=== PATIENT | female | born 1980 | race Caucasian/White ===

== ENCOUNTER 2017-08-30 10:29 | Inpatient (IN) ==
[2017-08-30] MEDS ORDERED: OXYTOCIN 10 UNIT/ML INJECTION IM ONE (10:40)
[2017-08-30] MEDS ORDERED: CALCIUM CARBONATE Chewable 500mg TABLET PO PRN (11:00)
[2017-08-30] MEDS ORDERED: ACETAMINOPHEN 500 MG TABLET PO PRN (11:00)
[2017-08-30] MEDS ORDERED: MEASLES-MUMPS-RUBELLA VACCINE 0.5ml INJECTION SQ ONE (11:00)
[2017-08-30] MEDS ORDERED: MAG-AL + SIM ORAL LIQUID 30ml PO PRN (11:00)
[2017-08-30] MEDS ORDERED: DiphenhydrAMINE 25 MG CAPSULE PO PRN (11:00)
[2017-08-30] MEDS ORDERED: HYDROCORTISONE 2.5% CREAM 30gm RECTALLY PRN (11:00)
[2017-08-30] MEDS ORDERED: HYDROCODONE/APAP 5mg/325mg TABLET PO PRN (11:00)
[2017-08-30] MEDS ORDERED: TETANUS, DIPHTHERIA, a PERTUSSIS (Tdap) 0.5ml INJECTION IM ONE (11:00)
[2017-08-30] MEDS: IBUPROFEN 800 MG TABLET PO PRN (11:15)
[2017-08-30 11:34] VITALS: BMI 25.4
--- NOTE | 2017-08-30 12:25 | Labor and Delivery Note ---
DATE 08/30/2017 Mrs. Bui is a G6, P5 per her report with unknown LMP. She believes she was due in September. She called [facility] this morning reporting that she felt like she was an active labor. A friend drove her in and our Maternal/Child nurses were waiting for her at the door. They wheeled her directly into a labor room and indeed she did proceed to progress rapidly through labor. She was almost complete and +1 upon presentation. heart tones were reactive and reassuring. She very shortly began to push at complete and +1, delivering the head and baby entirely within a few contractions and with two pushes. Baby was set on mother's abdomen, bulb suctioned. After about a minute and a half, the cord was doubly clamped and cut. Dr. Caba then assessed the baby at 39 weeks. After a few moments, the placenta delivered spontaneously intact. It appeared scalloped and mature but normal. The cord was normal with normal coiling and three vessels. It was sent to Pathology for evaluation. Perineum was intact. There were first- degree periurethral lacerations bilaterally that were hemostatic and not repaired. Total blood loss was approximately 300 mL. At the time of this dictation, mother and baby are doing well. Baby is a baby girl with Apgars of 6 /9/9 and weighed 5 pounds 0 ounces. [facility]
[2017-08-30] MEDS: SERTRALINE 50 MG TABLET PO SCH (16:39)
[2017-08-31] MEDS: IBUPROFEN 800 MG TABLET PO PRN ×2 (01:12→14:17)
[2017-08-31 04:26] VITALS: O2SAT 97
[2017-08-31] MEDS ORDERED: DOCUSATE CALCIUM 240 MG CAPSULE PO SCH (09:00)
[2017-08-31] MEDS ORDERED: FERROUS SULFATE 324 MG TABLET PO SCH (09:00)
--- NOTE | 2017-08-31 12:48 | OB/GYN Progress Note ---
OB-PP Progress Note - General PPD1 Maternal Group B Strep: Not Done/No Results Maternal blood type: A+ Maternal Rubella Status: Immune - Subjective Date: 08/31/17 Lochia: Minimal Pain: controlled Voiding: voiding Nausea or Vomiting Present: No - Objective Vital Signs: Last Vital Signs Temp 98.5 F 08/31/17 03:45 Pulse 96 08/31/17 03:45 Resp 20 08/31/17 03:45 BP 135/92 H 08/31/17 03:45 Pulse Ox 97 08/31/17 03:45 Abdomen: fundus firm, non-tender Extremities: non-tender Edema: none Laboratory: Laboratory Results - last 24 hr 08/30/17 08/30/17 08/30/17 11:20 11:20 17:58 Urine Opiates Screen Negative Ur Oxycodone Screen Negative Urine Methadone Screen Negative Ur Propoxyphene Screen Negative Ur Barbiturates Screen Negative U Tricyclic Antidepress Negative Ur Phencyclidine Scrn Negative Ur Amphetamines Screen Positive U Methamphetamines Scrn Positive U Benzodiazepines Scrn Negative Urine Cocaine Screen Negative U Cannabinoids Screen Negative Ur Drug Screen Confirm Chlam trachomat DNA PCR Hep Bs Antigen Negative Hepatitis C Antibody Negative N.gonorrhoeae Source N.gonorrhoeae DNA (PCR) 08/30/17 08/30/17 17:58 17:58 Urine Opiates Screen Ur Oxycodone Screen Urine Methadone Screen Ur Propoxyphene Screen Ur Barbiturates Screen U Tricyclic Antidepress Ur Phencyclidine Scrn Ur Amphetamines Screen U Methamphetamines Scrn U Benzodiazepines Scrn Urine Cocaine Screen U Cannabinoids Screen Ur Drug Screen Confirm Sent out Chlam trachomat DNA PCR Negative Hep Bs Antigen Hepatitis C Antibody N.gonorrhoeae Source Urine N.gonorrhoeae DNA (PCR) Negative - Assessment Assessment: SP, - Plan Plan: routine care Expected date of discharge: 09/01/17 Plan dismiss to Boarding status tomorrow.
[2017-08-31] MEDS: SERTRALINE 50 MG TABLET PO SCH (14:17)
[2017-09-01] MEDS: IBUPROFEN 800 MG TABLET PO PRN (09:14)
[2017-09-01] MEDS: SERTRALINE 50 MG TABLET PO SCH (09:14)
[2017-09-01 10:06] VITALS: TEMP 98.3
[2017-09-01 16:42] VITALS: BP 141/96; PULSE 95; RESP 16
== END 2017-09-01 16:50 | disposition home or self-care (01) | DRG 775 ==
LOC: MC 10:29
PROVIDERS: ADMIT Obstetrics & Gynecology; ATTEND Obstetrics & Gynecology